=== PATIENT | male | born 1975 | race African-American/Black ===

== ENCOUNTER 2016-12-14 19:24 | Emergency (ER) | payer OTHER ==
--- NOTE | 2016-12-14 20:32 | RAD ---
HISTORY: Right calf pain COMPARISONS: None relevant TECHNIQUE: Multiple transverse and longitudinal ultrasound images were obtained of the right lower extremity from the level of the common femoral vein inferiorly through to the infrapopliteal veins using grayscale, color Doppler, and spectral Doppler imaging with and without compression and with augmentation. Comparison images were obtained of the contralateral common femoral vein. FINDINGS: VEINS: The venous system of the right lower extremity is compressible throughout its course, with normal flow on color Doppler imaging and normal response to augmentation on spectral Doppler imaging. SOFT TISSUES: Unremarkable. OTHER FINDINGS: None. IMPRESSION: NO RIGHT LOWER EXTREMITY DEEP VEIN THROMBOSIS
--- NOTE | 2016-12-14 20:38 | ED ---
Lower Extremity - HPI Summary HPI Summary: 41M presents with potential DVT of right calf. Pain in right calf began 10 days ago. He states that walking makes worst. He admits to swelling. He states that he was training really hard when pain started. He is smoker. He has history of immobilization due to being in residential. He denies any recent surgeries. He states the pain is worst with running and jumping jacks. He denies any chest pain or SOB. He has hx of HTN and hemorrhoids. He denies any personal history of DVT but states sister may have history of DVT. He denies any trauma. - History of Current Complaint Chief Complaint: EDExtremityLower Stated Complaint: R/O DVT Time Seen by Provider: 12/14/16 20:22 Pain Intensity: 4 - Allergies/Home Medications Allergies/Adverse Reactions: Allergies Allergy/AdvReac Type Severity Reaction Status Date / Time No Known Allergies Allergy Verified 12/14/16 19:40 PMH/Surg Hx/FS Hx/Imm Hx Cardiovascular History: Reports: Hx Hypertension GI History: Reports: Other GI Disorders - hemorrhoids - Immunization History Date of Tetanus Vaccine: 2016 Infectious Disease History: No Infectious Disease History: Denies: Traveled Outside the [place] in Last 30 Days - Family History Known Family History: Positive: Other - blood clot sister - Social History Alcohol Use: None Substance Use Type: Reports: Marijuana Smoking Status (MU): Current Some Day Smoker Review of Systems Negative: Fever Negative: Chest Pain Negative: Shortness Of Breath Positive: Myalgia - right calf All Other Systems Reviewed And Are Negative: Yes Physical Exam Triage Information Reviewed: Yes Vital Signs On Initial Exam: Initial Vitals Temp Pulse Resp BP Pulse Ox 97.4 F 57 15 147/80 100 12/14/16 19:36 12/14/16 19:36 12/14/16 19:36 12/14/16 19:36 12/14/16 19:36 Vital Signs Reviewed: Yes Appearance: Positive: Well-Appearing Skin: Positive: Warm, Dry Head/Face: Positive: Normal Head/Face Inspection Eyes: Positive: Normal, Conjunctiva Clear Respiratory/Lung Sounds: Positive: Clear to Auscultation, Breath Sounds Present Cardiovascular: Positive: Normal, RRR Musculoskeletal: Positive: Strength/ROM Intact - of right knee and ankle, Laura Sign Right, Other - good pulses, capillary refill <2 secs, sensation grossly intact, tender to palpation of right calf - Armando Coma Scale Coma Scale Total: 15 Diagnostics - Vital Signs Vital Signs Temp Pulse Resp BP Pulse Ox 12/14/16 19:36 97.4 F 57 15 147/80 100 - Laboratory Lab Statement: Any lab studies that have been ordered have been reviewed, and results considered in the medical decision making process. - Ultrasound No standard instances Ultrasound Interpretation: No Acute Changes - IMPRESSION: NO RIGHT LOWER EXTREMITY DEEP VEIN THROMBOSIS Ultrasound Interpretation Completed By: Radiologist Lower Extremity Course/Dx - Course Course Of Treatment: 41M presents with right calf pain for 10 days. denies any injury but does states that is training. states pain is worst with walking. risk factors for DVT are smoker, potential family history DVT and immbolization due to being in prision, on exam pos homans, calf appear same size, u/s right leg normal. discussed results with patient and told treat conservatively. patient understands and agrees with plan - Diagnoses Differential Diagnosis/HQI/PQRI: Positive: DVT, Sprain, Strain Provider Diagnoses: Pain of right calf Discharge - Discharge Plan Condition: Good Disposition: HOME Patient Education Materials: Leg Cramps (ED) Referrals: No Primary Care Phys,NOPCP [Primary Care Provider] - Additional Instructions: Take ibuprofen every 6 hours as needed for pain Ice, elevate Modify activity as tolerated Return to ED if develop any new or worsening symptoms
[2016-12-14 20:57] VITALS: BP 145/82
== END 2016-12-14 20:55 | disposition home or self-care (01) ==
LOC: ED 19:24
DX: M79.604 Pain in right leg (principal); Z72.0 Tobacco use
CPT/HCPCS: 99282